=== PATIENT | female | born 1940 | race African-American/Black ===

== ENCOUNTER 2017-11-17 06:35 | Inpatient (IN) | payer OTHER ==
[~2017-11-17] VITALS: Ht 165.1 cm; Wt 85.8 kg
[2017-11-17 07:51] LABS: AMYLASE 25 IU/L (1-118); CHLORIDE 107 MEQ/L (99-109); POTASSIUM 4.3 MEQ/L (3.7-5.4); SODIUM 138 MEQ/L (136-147)
[2017-11-17 07:57] LABS: CREATININE 0.8 MG/DL (0.6-1.3); GFR ESTIMATE (CALCULATED) > 59 mL/min/; GLUCOSE 107 mg/dL (70-99); LIPASE 8 U/L (1.0-51.0); SERUM ETHYL ALCOHOL 11 mg/dL; UREA NITROGEN (BUN) 10 mg/dL (9-23)
[2017-11-17 08:00] LABS: TROP-I INTERPRETATION NEGATIVE; TROPONIN-I < 0.01 ng/mL (0.0-0.30)
[2017-11-17 08:12] LABS: BASOPHIL (%) 0.3 % (0-1); EOSINOPHIL (%) 0.6 % (0-5); EOSINOPHIL COUNT 0.1 K/uL (0-0.3); HEMOGLOBIN 15.6 G/DL (11.9-15.5); IMMATURE GRANULOCYTE (%) 0.2 % (0.0-0.7); LYMPHOCYTE (%) 18.8 % (15-42); MCH 31.6 PG (29.0-34.0); MCHC 34.7 G/DL (30.0-36.0); MCV 91.1 FL (83-99); MONOCYTE (%) 5.7 % (3-12); MONOCYTE COUNT 0.6 K/uL (0-0.8); NEUTROPHIL (%) 74.4 % (45-76); NEUTROPHIL COUNT 7.7 K/uL (1.8-6.4); PLATELET COUNT 243 K/uL (156-360); RBC DIS.WIDTH-CV 12.8 % (11.8-14.6); RBC DIS.WIDTH-SD 43.1 % (39-53); RED BLOOD COUNT 4.94 M/uL (3.80-5.20); WHITE BLOOD COUNT 10.4 K/uL (4.1-10.2)
[2017-11-17 08:17] LABS: INTER. NORMALIZED RATIO 1.1
[2017-11-17 08:19] LABS: PTT 30.4 SEC (25-37)
[2017-11-17 09:11] LABS: APPEARANCE CLOUDY ((CLEAR)); BILIRUBIN NEGATIVE; BLOOD SMALL; COLOR YELLOW ((YELLOW)); GLUCOSE (STRIP) NEGATIVE; KETONES NEGATIVE; LEUKOCYTES MODERATE; NITRITE POSITIVE; PROTEIN (STRIP) NEGATIVE; SPECIFIC GRAVITY 1.028 (1.000-1.030); UROBILINOGEN 0.2 MG/DL (0.2-1.0)
[2017-11-17 09:21] LABS: AMPHETAMINE NEGATIVE (500 ng/mL); BARBITURATES NEGATIVE (200 ng/mL); BENZODIAZEPINES NEGATIVE (150 ng/mL); BUPRENORPHINE NEGATIVE (10 ng/mL); COCAINE NEGATIVE (150 ng/mL); METHADONE NEGATIVE (200 ng/mL); METHAMPHETAMINE NEGATIVE (500 ng/mL); OPIATES (MORPHINE) NEGATIVE (100 ng/mL); OXYCODONE NEGATIVE (100 ng/mL); PHENCYCLIDINE NEGATIVE (25 ng/mL); PROPOXYPHENE NEGATIVE (300 ng/mL); THC CANNABINOIDS NEGATIVE (50 ng/mL); TRICYCLIC ANTIDEPRESSANTS NEGATIVE (300 ng/mL)
[2017-11-17 09:29] LABS: EPITHELIAL CELLS 4+ /HPF; MUCUS NONE SEEN /LPF
[2017-11-17 09:32] LABS: BACTERIA 4+ /HPF; RED BLOOD CELLS 0-5 /HPF (0-5); UCUL ADDED? YES
[2017-11-17 12:53] LABS: HEMOGLOBIN 15.4 G/DL (11.9-15.5); MCH 31.6 PG (29.0-34.0); MCHC 34.2 G/DL (30.0-36.0); MCV 92.4 FL (83-99); PLATELET COUNT 237 K/uL (156-360); RBC DIS.WIDTH-SD 44.5 % (39-53); RED BLOOD COUNT 4.87 M/uL (3.80-5.20); WHITE BLOOD COUNT 8.9 K/uL (4.1-10.2)
[2017-11-17 13:26] LABS: HDL CHOLESTEROL 30 MG/DL (Desirable>=50); LDL CHOLESTEROL 89 mg/dL (Desirable<100); NON-HDL CHOLESTEROL 108 mg/dL (Desirable<160); TOTAL CHOLESTEROL 138 mg/dL (Desirable<200); TRIGLYCERIDES 96 MG/DL (Normal: <150)
[2017-11-17 14:06] LABS: HEMOGLOBIN A1c (GLYCOHEMOGLOB) 5.6 % (Below 5.7)
[2017-11-17 14:10] VITALS: BP 195/81
[2017-11-17 16:16] VITALS: BP 189/77
[2017-11-17 16:58] VITALS: BP 155/80
[2017-11-17 19:22] VITALS: BP 199/84
[2017-11-17 23:48] VITALS: BP 161/93
[2017-11-18 07:40] VITALS: BP 162/70
[2017-11-18 11:36] VITALS: BP 173/74
[2017-11-18 16:15] VITALS: BP 164/70
[2017-11-18 19:49] VITALS: BP 145/67
[2017-11-19 00:15] VITALS: BP 142/81
[2017-11-19 03:38] VITALS: BP 141/74
[2017-11-19 07:49] VITALS: BP 143/67
[2017-11-19] MEDS ORDERED: ATORVASTATIN CA40 MG PO (11:21)
[2017-11-19] MEDS ORDERED: ASPIR-LOW81 MG PO (11:21)
[2017-11-19] MEDS ORDERED: KEFLEX500 MG PO (11:24)
[2017-11-19] MEDS ORDERED: AMLODIPINE BES2.5 MG PO (11:28)
== END 2017-11-19 13:08 | DRG 65 ==
LOC: EME → EDBD 06:35 → EDOF 12:14 → 5SOUTH 12:14 → ENRESERV 12:17 → 5SOUTH 13:56
PROVIDERS: Emergency Medicine; Physician Assistant
DX: I63.531 Cerebral infarction due to unspecified occlusion or stenosis of right posterior cerebral artery (principal); G81.94 Hemiplegia, unspecified affecting left nondominant side; H53.40 Unspecified visual field defects; N39.0 Urinary tract infection, site not specified; I10 Essential (primary) hypertension; F17.210 Nicotine dependence, cigarettes, uncomplicated; Z66 Do not resuscitate
CPT/HCPCS: 70450; 70496; 70498; 70551; 71045; 80048; 80061; 81003; 82150; 83036; 83690; 84484; 85025; 85027; 85610; 85730; 86850; 86900; 86901; 87077; 87086; 87186; 92610 GN; 93005; 93306; 99281; 99285; G0480; J0696; J1644; J7030

== ENCOUNTER 2017-11-18 15:24 | Inpatient (IN) | payer OTHER ==
[~2017-11-18] VITALS: Ht 165.1 cm; Wt 89.7 kg
[2017-11-19] MEDS ORDERED: ASPIR-LOW81 MG PO (11:21)
[2017-11-19] MEDS ORDERED: ATORVASTATIN CA40 MG PO (11:21)
[2017-11-19] MEDS ORDERED: KEFLEX500 MG PO (11:24)
[2017-11-19] MEDS ORDERED: AMLODIPINE BES2.5 MG PO (11:28)
[2017-11-19 13:51] VITALS: BP 145/94
[2017-11-20 00:31] VITALS: BP 148/73
[2017-11-20 05:13] VITALS: BP 136/78
[2017-11-20 07:12] LABS: HEMATOCRIT 44.9 % (36.0-46.0); MCH 31.2 PG (29.0-34.0); MCHC 33.4 G/DL (30.0-36.0); MCV 93.3 FL (83-99); PLATELET COUNT 243 K/uL (156-360); RBC DIS.WIDTH-CV 13.2 % (11.8-14.6); RBC DIS.WIDTH-SD 45.1 % (39-53); RED BLOOD COUNT 4.81 M/uL (3.80-5.20); WHITE BLOOD COUNT 7.6 K/uL (4.1-10.2)
[2017-11-20 07:37] LABS: ALBUMIN 3.8 G/DL (3.2-4.8); ALKALINE PHOSPHATASE 74 IU/L (3-129); ALT (GPT) 12 IU/L (3-49); AST (GOT) 15 IU/L (2-34); CHLORIDE 105 MEQ/L (99-109); GFR ESTIMATE (CALCULATED) > 59 mL/min/; GLUCOSE 93 mg/dL (70-99); POTASSIUM 4.3 MEQ/L (3.7-5.4); SODIUM 141 MEQ/L (136-147); TOTAL BILIRUBIN 0.7 MG/DL (0.0-1.0); TOTAL PROTEIN 5.9 G/DL (6.4-8.3); UREA NITROGEN (BUN) 13 mg/dL (9-23)
[2017-11-20 15:19] VITALS: BP 147/64
[2017-11-21 05:13] VITALS: BP 127/63
[2017-11-21 16:00] VITALS: BP 162/80
[2017-11-22 05:56] VITALS: BP 126/60
[2017-11-22 15:46] VITALS: BP 137/66
[2017-11-23 05:02] VITALS: BP 132/69
[2017-11-23 15:36] VITALS: BP 141/67
[2017-11-24 05:23] VITALS: BP 127/60
[2017-11-24 07:02] LABS: CHLORIDE 106 MEQ/L (99-109); CREATININE 0.9 MG/DL (0.6-1.3); GFR ESTIMATE (CALCULATED) > 59 mL/min/; GLUCOSE 89 mg/dL (70-99); POTASSIUM 3.9 MEQ/L (3.7-5.4); SODIUM 141 MEQ/L (136-147); UREA NITROGEN (BUN) 11 mg/dL (9-23)
[2017-11-24 08:22] LABS: FOLIC ACID (FOLATE) 18.2 NG/ML (5.0-22.0); THYROTROPIN (TSH) 1.7 MIU/L (0.4-5.5)
[2017-11-24 15:08] VITALS: BP 147/73
[2017-11-25 05:42] VITALS: BP 130/61
[2017-11-25 15:32] VITALS: BP 157/72
[2017-11-26 03:47] VITALS: BP 134/78
[2017-11-26 15:10] VITALS: BP 125/59
[2017-11-27 05:11] VITALS: BP 132/73
[2017-11-27 15:51] VITALS: BP 142/65
[2017-11-28 05:55] VITALS: BP 131/52
[2017-11-28 15:54] VITALS: BP 135/71
[2017-11-29 06:00] VITALS: BP 138/78
[2017-11-29 16:15] VITALS: BP 135/66
[2017-11-30 05:34] VITALS: BP 160/70
[2017-11-30 15:10] VITALS: BP 135/66
[2017-12-01 07:05] VITALS: BP 138/69
[2017-12-01 15:43] VITALS: BP 141/65
[2017-12-02 07:08] VITALS: BP 129/59
[2017-12-02 15:05] VITALS: BP 126/58
[2017-12-03 05:19] VITALS: BP 135/63
[2017-12-03 14:59] VITALS: BP 130/59
[2017-12-04 06:09] VITALS: BP 114/56
[2017-12-04 15:01] VITALS: BP 126/60
[2017-12-05 05:45] VITALS: BP 138/63
[2017-12-05 15:28] VITALS: BP 129/59
[2017-12-06 04:15] VITALS: BP 131/65
[2017-12-07 04:18] VITALS: BP 125/64
[2017-12-07 16:00] VITALS: BP 125/68
[2017-12-08 04:33] VITALS: BP 126/60
[2017-12-08 15:04] VITALS: BP 131/59
[2017-12-09 05:25] VITALS: BP 137/62
[2017-12-09 06:11] LABS: BASOPHIL (%) 0.6 % (0-1); BASOPHIL COUNT 0.1 K/uL (0-0.1); EOSINOPHIL (%) 3.4 % (0-5); EOSINOPHIL COUNT 0.3 K/uL (0-0.3); HEMATOCRIT 45.2 % (36.0-46.0); IMMATURE GRANULOCYTE (%) 0.4 % (0.0-0.7); LYMPHOCYTE (%) 38.9 % (15-42); LYMPHOCYTE COUNT 3.1 K/uL (1.0-2.8); MCH 31.4 PG (29.0-34.0); MCHC 33.2 G/DL (30.0-36.0); MCV 94.8 FL (83-99); MONOCYTE (%) 7.1 % (3-12); MONOCYTE COUNT 0.6 K/uL (0-0.8); NEUTROPHIL (%) 49.6 % (45-76); PLATELET COUNT 255 K/uL (156-360); RBC DIS.WIDTH-CV 13.2 % (11.8-14.6); RBC DIS.WIDTH-SD 46.5 % (39-53); RED BLOOD COUNT 4.77 M/uL (3.80-5.20); WHITE BLOOD COUNT 8.1 K/uL (4.1-10.2)
[2017-12-09 06:26] LABS: CHLORIDE 106 MEQ/L (99-109); GFR ESTIMATE (CALCULATED) > 59 mL/min/; GLUCOSE 96 mg/dL (70-99); POTASSIUM 4.9 MEQ/L (3.7-5.4); SODIUM 143 MEQ/L (136-147); UREA NITROGEN (BUN) 16 mg/dL (9-23)
[2017-12-09 16:27] VITALS: BP 127/59
[2017-12-10 04:25] VITALS: BP 142/66
[2017-12-10 15:21] VITALS: BP 129/63
[2017-12-11 03:57] VITALS: BP 110/68
[2017-12-11 15:29] VITALS: BP 124/59
[2017-12-12 06:25] VITALS: BP 127/59
[2017-12-12 15:56] VITALS: BP 127/58
[2017-12-13 05:19] VITALS: BP 118/58
[2017-12-13 15:25] VITALS: BP 132/61
[2017-12-14 05:30] VITALS: BP 138/71
[2017-12-14 15:08] VITALS: BP 115/57
[2017-12-15 04:08] VITALS: BP 142/70
[2017-12-15 15:25] VITALS: BP 138/59
[2017-12-16 05:51] VITALS: BP 126/58
[2017-12-16 15:13] VITALS: BP 143/63
[2017-12-17 04:56] VITALS: BP 136/61
[2017-12-17 15:21] VITALS: BP 136/65
[2017-12-18 06:00] VITALS: BP 130/56
[2017-12-18 15:20] VITALS: BP 109/64
[2017-12-19 05:59] VITALS: BP 126/58
[2017-12-19 16:00] VITALS: BP 116/58
[2017-12-20 05:16] VITALS: BP 126/58
[2017-12-20 05:52] LABS: HEMATOCRIT 42.6 % (36.0-46.0); HEMOGLOBIN 14.2 G/DL (11.9-15.5); MCH 30.6 PG (29.0-34.0); MCHC 33.3 G/DL (30.0-36.0); MCV 91.8 FL (83-99); PLATELET COUNT 228 K/uL (156-360); RBC DIS.WIDTH-CV 13.6 % (11.8-14.6); RBC DIS.WIDTH-SD 46.3 % (39-53); RED BLOOD COUNT 4.64 M/uL (3.80-5.20); WHITE BLOOD COUNT 8.8 K/uL (4.1-10.2)
[2017-12-20 06:15] LABS: ALBUMIN 3.2 G/DL (3.2-4.8); ALKALINE PHOSPHATASE 61 IU/L (3-129); ALT (GPT) 20 IU/L (3-49); AST (GOT) 12 IU/L (2-34); CHLORIDE 108 MEQ/L (99-109); CREATININE 0.9 MG/DL (0.6-1.3); GFR ESTIMATE (CALCULATED) > 59 mL/min/; GLUCOSE 93 mg/dL (70-99); POTASSIUM 4.4 MEQ/L (3.7-5.4); SODIUM 141 MEQ/L (136-147); TOTAL BILIRUBIN 0.4 MG/DL (0.0-1.0); TOTAL PROTEIN 5.3 G/DL (6.4-8.3); UREA NITROGEN (BUN) 16 mg/dL (9-23)
[2017-12-20 15:59] VITALS: BP 132/66
[2017-12-21 05:15] VITALS: BP 129/57
[2017-12-21] MEDS ORDERED: VITAMIN D-32000 UNI2 PO (10:48)
[2017-12-21] MEDS ORDERED: ATORVASTATIN CA40 MG PO (10:48)
[2017-12-21] MEDS ORDERED: GABAPENTIN300 MG PO (10:48)
[2017-12-21] MEDS ORDERED: SENNA PLUS TAB1 EACH PO (10:48)
[2017-12-21] MEDS ORDERED: ASPIR-LOW81 MG PO (10:48)
[2017-12-21] MEDS ORDERED: ANTIVERT12.5 MG PO (10:48)
[2017-12-21] MEDS ORDERED: MELOXICAM7.5 MG PO (10:48)
[2017-12-21] MEDS ORDERED: POLYETHYLENE GL17 GM PO (10:48)
[2017-12-21] MEDS ORDERED: NATURAL BALANCE15 M1 OP (10:48)
[2017-12-21] MEDS ORDERED: LOSARTAN POTAS100 MG PO (10:48)
[2017-12-21] MEDS ORDERED: AMLODIPINE BESYL5 MG PO (10:48)
== END 2017-12-21 14:50 | disposition home health service (06) | DRG 57 ==
LOC: 3WEST 15:24 → ENPENDDIS 12-16 → EDPENDDISDT 12-21 → 3WEST 12-21 14:50
PROVIDERS: Family Medicine Sports Medicine; Physical Medicine & Rehabilitation Pain Medicine
PROC: F07M0ZZ Range of Motion and Joint Mobility Treatment of Musculoskeletal System - Whole Body (ICD-10-PCS; principal; 2017-11-19)
DX: I69.354 Hemiplegia and hemiparesis following cerebral infarction affecting left non-dominant side (principal); I10 Essential (primary) hypertension; I66.21 Occlusion and stenosis of right posterior cerebral artery; N39.0 Urinary tract infection, site not specified; F17.210 Nicotine dependence, cigarettes, uncomplicated; R13.10 Dysphagia, unspecified; M79.602 Pain in left arm; R47.1 Dysarthria and anarthria; M19.90 Unspecified osteoarthritis, unspecified site; Z90.710 Acquired absence of both cervix and uterus; R41.4 Neurologic neglect syndrome; M79.642 Pain in left hand; H81.10 Benign paroxysmal vertigo, unspecified ear; H54.7 Unspecified visual loss; R11.0 Nausea; M79.1 Myalgia; K59.00 Constipation, unspecified; B96.20 Unspecified Escherichia coli [E. coli] as the cause of diseases classified elsewhere; R26.9 Unspecified abnormalities of gait and mobility
CPT/HCPCS: 70450; 72070; 72100; 72148; 73080; 73090; 73110; 73130; 73502; 73552; 73721; 80048; 80053; 82607; 82746; 82948; 84443; 85025; 85027; 92507 GN; 92523 GN; 92610 GN; 94799; 97110 GO; 97112 GO; 97530 GP; G0515 GN; G0515 GO; J1644; J1650; J2405; J7040; J7509